=== PATIENT | male | born 1980 | race Caucasian/White ===

== ENCOUNTER 2024-12-06 09:53 | Emergency (ER) | payer OTHER, SELFPAY ==
[2024-12-06 09:58] VITALS: BP 159/87; PULSE 82; TEMP 36.9; O2SAT 98; BMI 44.8
--- NOTE | 2024-12-06 10:50 | XR_ITS ---
The [address] [address] Patient Name: ESTER GONZALEZ MRN: [id number] date: 1980 Sex: M Assigned Patient Location: ER Current Patient Location: ER Accession/Order Number: [id number] Exam Date: 12/06/2024 11:00 Report Date: 12/06/2024 12:01 At the request of: HANS SIMPSON DO Procedure: XR tibia fibula RT 2V CLINICAL DATA: Patient rolled right ankle last night. Pain. RIGHT ANKLE - 3 views COMPARISON: None AP, lateral and oblique views were obtained. There is no evidence of fracture or dislocation. The talar dome is intact. There are calcaneal spurs. Slight anterior and medial soft tissue swelling is visualized. XR/XR tibia fibula RT 2V IMPRESSION: NO ACUTE BONY INJURY. RIGHT TIBIA AND FIBULA - 2 views COMPARISON: None AP and lateral views of the right tibia and fibula were obtained. There is no acute fracture, dislocation or bony destruction. 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 There is a small amount of joint fluid at the knee. No soft tissue swelling is seen. IMPRESSION: NO ACUTE BONY INJURY. Impression dictated by: Adeline Mills M.D. 12/06/2024 12:01 PM Dictation Location: [place] [address] Electronically authenticated by: [id number] Y Date: 12/06/2024 12:01
--- NOTE | 2024-12-06 10:50 | XR_ITS ---
The [address] [address] Patient Name: ESTER GONZALEZ MRN: [id number] date: 1980 Sex: M Assigned Patient Location: ER Current Patient Location: ER Accession/Order Number: [id number] Exam Date: 12/06/2024 11:00 Report Date: 12/06/2024 12:01 At the request of: HANS SIMPSON DO Procedure: XR tibia fibula RT 2V CLINICAL DATA: Patient rolled right ankle last night. Pain. RIGHT ANKLE - 3 views COMPARISON: None AP, lateral and oblique views were obtained. There is no evidence of fracture or dislocation. The talar dome is intact. There are calcaneal spurs. Slight anterior and medial soft tissue swelling is visualized. XR/XR ankle RT min 3V IMPRESSION: NO ACUTE BONY INJURY. RIGHT TIBIA AND FIBULA - 2 views COMPARISON: None AP and lateral views of the right tibia and fibula were obtained. There is no acute fracture, dislocation or bony destruction. 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 There is a small amount of joint fluid at the knee. No soft tissue swelling is seen. IMPRESSION: NO ACUTE BONY INJURY. Impression dictated by: Adeline Mills M.D. 12/06/2024 12:01 PM Dictation Location: [place] [address] Electronically authenticated by: [id number] Y Date: 12/06/2024 12:01
[2024-12-06] MEDS: HYDROCODONE/ACET 5-325 MG TABLET 2 TAB PO (11:27)
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
== END 2024-12-06 12:36 | disposition home or self-care (01) ==
PROVIDERS: Emergency Provider Student in an Organized Health Care Education/Training Program
DX: S93.401A Sprain of unspecified ligament of right ankle, initial encounter (principal); S96.911A Strain of unspecified muscle and tendon at ankle and foot level, right foot, initial encounter; V00.841A Fall from standing electric scooter, initial encounter
CPT/HCPCS: 73590; 73610; 99284